=== PATIENT | female | born 1980 | race Caucasian/White ===

== ENCOUNTER 2024-08-04 12:30 | Emergency (ER) | payer OTHER ==
[~2024-08-04] VITALS: Ht 307.3 cm; Wt 66.7 kg
[2024-08-04 12:44] VITALS: BP 108/84; PULSE 92; RESP 20; TEMP 97.9; O2SAT 95
[2024-08-04] MEDS ORDERED: AMOX1TAB8 PO (14:40)
[2024-08-04 14:50] VITALS: BP 107/68; PULSE 82; RESP 18; TEMP 98.1; O2SAT 95
== END 2024-08-04 14:55 | disposition home or self-care (01) ==
LOC: MED 12:30
DX: J18.9 Pneumonia, unspecified organism (principal); Z79.899 Other long term (current) drug therapy
CPT/HCPCS: 71045; 93005; 99283